=== PATIENT | male | born 1965 | race Caucasian/White ===

== ENCOUNTER → 2018-09-01 | Outpatient (CLI) | payer BC ==
--- NOTE | 2018-09-02 10:14 | EST ---
EXERCISE STRESS AGE: 53 SEX: M HT: 64" WT: 120 PROTOCOL: Alphonse Stress Test STAGE: 3 DURATION OF EXERCISE: 8:00 HEART RATE REST: 69 BLOOD PRESSURE REST: 121/73 MAXIMUM HEART RATE ACHIEVED: 147 MAXIMUM BLOOD PRESSURE: 169/44 85% MPHR: 143 100% MPHR: 168 METS: 9.7 INDICATIONS: Chest pain. CLINICAL INFORMATION: Regular exercise test was performed. Patient was exercised for a total period of 8 minutes peak heart rate of 147 was achieved. Maximum blood pressure of 169/44 mmHg was noted. Resting EKG shows normal sinus rhythm with normal NE interval and QRS duration and normal ST-T waves. During exercise, J-point depression with upsloping ST segments were noted. Patient did not complain of any chest pain during the test. FINAL IMPRESSION: 1. This exercise test shows equivocal upsloping ST-segment changes which are not definitely diagnostic of ischemia. 2. Patient's exercise tolerance is average. 3. Patient did not complain of any anginal pain during the test. MMODL / IJN: [id number] /
== END | disposition home or self-care (01) ==
LOC: RADNMMAIN 08:55
PROVIDERS: ATTEND Family Medicine
DX: R07.9 Chest pain, unspecified (principal); I10 Essential (primary) hypertension; E78.5 Hyperlipidemia, unspecified; E66.9 Obesity, unspecified; Z68.39 Body mass index [BMI] 39.0-39.9, adult
CPT/HCPCS: 93017

== ENCOUNTER 2019-02-11 09:51 | Observation (INO) | payer BC ==
[2019-02-11] MEDS ORDERED: MECLIZINE 12.5 MG TAB PO STA (10:11)
[2019-02-11] MEDS ORDERED: ONDANSETRON 4 MG/2 ML VIAL IVP STA (10:11)
[2019-02-11] MEDS ORDERED: SODIUM CHLORIDE 0.9% 1,000 ML IV STA ×2 (10:11)
--- NOTE | 2019-02-11 10:19 | ED ---
Dizziness HPI - General Chief Complaint: Dizziness Stated Complaint: Dizziness/sweating/numbness Time Seen by Provider: 02/11/19 10:03 Source: patient, family, RN notes reviewed Mode of arrival: wheelchair Limitations: no limitations - History of Present Illness Initial Comments: This is a 54-year-old male in the process of being worked up by cardiology in the stridorous and a negative workup but has not had a cardiac cath who states she had the sudden onset this morning of severe dizziness lightheadedness with nausea sweats dizziness difficulty walking. He also had some vague pain going down his left arm. He denies any fevers chills denies any cough or phlegm production denies any blurry vision headaches no focal deficits. No new medications or drugs or alcohol. No other modifying factors at this time MD Complaint: dizziness, lightheadedness, difficulty walking, other - Related Data Home Medications Medication Instructions Recorded Confirmed Atorvastatin [Lipitor] 40 mg PO HS 07/22/16 02/11/19 Lisinopril [Zestril] 15 mg PO DAILY 02/11/19 02/11/19 Allergies Allergy/AdvReac Type Severity Reaction Status Date / Time No Known Allergies Allergy Verified 02/11/19 10:28 Review of Systems ROS Statement: Those systems with pertinent positive or pertinent negative responses have been documented in the HPI. ROS Other: All systems not noted in ROS Statement are negative. Past Medical History Past Medical History: Hyperlipidemia, Hypertension History of Any Multi-Drug Resistant Organisms: None Reported Additional Past Surgical History / Comment(s): MINOR: DENTAL WORK/VASECTOMY Past Anesthesia/Blood Transfusion Reactions: Motion Sickness Additional Past Anesthesia/Blood Transfusion Reaction / Comment(s): HAS NEVER HAD GENERAL ANESTHESIA. Smoking Status: Never smoker Past Alcohol Use History: None Reported Past Drug Use History: None Reported General Exam - General Exam Comments Initial Comments: This is a well-developed well-nourished awake alert oriented times 3 male who was actively retching at this time. The patient also was noted be hyperventilating Limitations: no limitations General appearance: alert, anxious Head exam: Present: atraumatic, normocephalic, normal inspection Eye exam: Present: normal appearance, PERRL, EOMI. Absent: scleral icterus, conjunctival injection, periorbital swelling ENT exam: Present: normal exam, mucous membranes moist Neck exam: Present: normal inspection, full ROM, other (No stridor JVD or bruits). Absent: tenderness, meningismus, lymphadenopathy Respiratory exam: Present: normal lung sounds bilaterally. Absent: respiratory distress, wheezes, rales, rhonchi, stridor Cardiovascular Exam: Present: regular rate, normal rhythm, normal heart sounds. Absent: systolic murmur, diastolic murmur, rubs, gallop, clicks GI/Abdominal exam: Present: soft, normal bowel sounds. Absent: distended, tenderness, guarding, rebound, rigid, bruit, pulsatile mass Extremities exam: Present: normal inspection, full ROM, normal capillary refill. Absent: tenderness, pedal edema, joint swelling, calf tenderness Back exam: Present: normal inspection Neurological exam: Present: alert, oriented X3, CN II-XII intact Psychiatric exam: Present: normal affect, normal mood Skin exam: Present: warm, intact, diaphoretic, pallor. Absent: rash Course Vital Signs 02/11/19 02/11/19 02/11/19 09:54 10:03 10:30 Temperature 98.4 F Pulse Rate 87 87 Respiratory 18 24 17 Rate Blood Pressure 147/86 152/90 O2 Sat by Pulse 100 99 98 Oximetry 02/11/19 02/11/19 02/11/19 11:00 11:31 12:00 Temperature Pulse Rate 81 83 79 Respiratory 28 H 23 24 Rate Blood Pressure 135/84 134/90 138/90 O2 Sat by Pulse 95 97 Oximetry 02/11/19 02/11/19 02/11/19 12:30 13:00 13:30 Temperature Pulse Rate 73 75 87 Respiratory Rate Blood Pressure 145/86 132/76 143/80 O2 Sat by Pulse 96 97 98 Oximetry - Reevaluation(s) Reevaluation #1: 02/11/19 11:36 Patient was reevaluated several occasions he still family have refractory dizziness with leaning his head back also nausea with dry heaves. Zofran initially did not help the patient was ordered Phenergan. Reevaluation #2: 02/11/19 12:55 Patient's finding started feel better with less dizziness. He is able move his head now without dizziness. Prior to any further assistance he would like to give her the low more time before we make a decision the next step. EKG Findings - EKG Results: EKG: interpreted by MARY, sinus rhythm (Normal sinus rhythm a 91 appear interval 158 QRS duration 14 QT since QTC 374/[address]-T wave changes) Medical Decision Making - Medical Decision Making Patient originally was getting somewhat improved after the medication was rendered. He still markedly dizzy however with any type of movement I did attempt to do Martín maneuvers the patient did not tolerate this patient will be admitted for evaluation - Lab Data Result diagrams: 02/11/19 10:17 02/11/19 12:15 Lab Results 02/11/19 02/11/19 02/11/19 Range/Units 10:17 10:20 12:15 WBC 5.6 (3.8-10.6) k/uL RBC 5.19 (4.30-5.90) m/uL Hgb 15.2 (13.0-17.5) gm/dL Hct 45.0 (39.0-53.0) % MCV 86.6 (80.0-100.0) fL MCH 29.3 (25.0-35.0) pg MCHC 33.8 (31.0-37.0) g/dL RDW 12.7 (11.5-15.5) % Plt Count 203 (150-450) k/uL Neutrophils % 61 % Lymphocytes % 31 % Monocytes % 4 % Eosinophils % 2 % Basophils % 0 % Neutrophils # 3.5 (1.3-7.7) k/uL Lymphocytes # 1.7 (1.0-4.8) k/uL Monocytes # 0.2 (0-1.0) k/uL Eosinophils # 0.1 (0-0.7) k/uL Basophils # 0.0 (0-0.2) k/uL Sodium 142 (137-145) mmol/L Potassium 3.8 (3.5-5.1) mmol/L Chloride 112 H (98-107) mmol/L Carbon Dioxide 18 L (22-30) mmol/L Anion Gap 12 mmol/L BUN 15 (9-20) mg/dL Creatinine 0.92 (0.66-1.25) mg/dL Est GFR (CKD-EPI)AfAm >90 (>60 ml/min/1.73 sqM) Est GFR (CKD-EPI)NonAf >90 (>60 ml/min/1.73 sqM) Glucose 170 H (74-99) mg/dL Calcium 9.4 (8.4-10.2) mg/dL Magnesium 1.8 (1.6-2.3) mg/dL Total Bilirubin 0.6 (0.2-1.3) mg/dL AST 23 (17-59) U/L ALT 29 (21-72) U/L Alkaline Phosphatase 77 (38-126) U/L Creatine Kinase 86 (55-170) U/L Troponin I <0.012 (0.000-0.034) ng/mL Total Protein 7.5 (6.3-8.2) g/dL Albumin 4.8 (3.5-5.0) g/dL - Radiology Data Radiology results: report reviewed (Imaging was reviewed no acute findings.), image reviewed Disposition Clinical Impression: Benign paroxysmal vertigo, unspecified ear, Dizziness of unknown cause Disposition: ADMITTED IP TO THIS [facility] Condition: Fair Referrals: Rich Magaña DO [Primary Care Provider] - 1-2 days
[2019-02-11 10:53] LABS: Basophils % (A) 0 %; Eosinophils # (A) 0.1 k/uL (0-0.7); Eosinophils % (A) 2 %; HGB 15.2 gm/dL (13.0-17.5); Lymphocytes # (A) 1.7 k/uL (1.0-4.8); Lymphocytes % (A) 31 %; MCH 29.3 pg (25.0-35.0); MCHC 33.8 g/dL (31.0-37.0); MCV 86.6 fL (80.0-100.0); Mean Platelet Volume 7.7; Monocytes # (A) 0.2 k/uL (0-1.0); Monocytes % (A) 4 %; Neutrophils # (A) 3.5 k/uL (1.3-7.7); Neutrophils % (A) 61 %; Platelet Count 203 k/uL (150-450); RBC 5.19 m/uL (4.30-5.90); RDW 12.7 % (11.5-15.5); WBC 5.6 k/uL (3.8-10.6)
[2019-02-11] MEDS ORDERED: PROMETHAZINE INJ 25 MG in SODIUM CHLORIDE 0.9% 50 ML IVPB STA (10:55)
--- NOTE | 2019-02-11 12:03 | XR ---
EXAMINATION TYPE: XR chest 2V DATE OF EXAM: 02/11/2019 HISTORY: cough. REFERENCE: Previous study dated 10/23/2010. FINDINGS: Size upper limits of normal. There is mild vascular congestion without definite interstitial change. Pleural spaces are clear. IMPRESSION: MILD CARDIOMEGALY WITH MILD VASCULAR CONGESTION.
[2019-02-11 12:26] LABS: ALT 29 U/L (21-72); AST 23 U/L (17-59); African American GFR (CKD) >90 (>60 ml/min/1.73 sqM); Albumin 4.8 g/dL (3.5-5.0); Alkaline Phosphatase 77 U/L (38-126); Anion Gap 12 mmol/L; Blood Urea Nitrogen 15 mg/dL (9-20); Calcium 9.4 mg/dL (8.4-10.2); Carbon Dioxide 18 mmol/L (22-30); Chloride 112 mmol/L (98-107); Creatine Kinase 86 U/L (55-170); Glucose 170 mg/dL (74-99); Magnesium 1.8 mg/dL (1.6-2.3); Potassium 3.8 mmol/L (3.5-5.1); Sodium 142 mmol/L (137-145); Total Bilirubin 0.6 mg/dL (0.2-1.3); Total Protein 7.5 g/dL (6.3-8.2)
--- NOTE | 2019-02-11 12:44 | CT ---
EXAMINATION TYPE: CT brain wo con DATE OF EXAM: 02/11/2019 COMPARISON: Previous study dated 10/25/2010 HISTORY: Dizziness and nausea CT DLP: 1046.4 mGycm Automated exposure control for dose reduction was used. FINDINGS: Central structures are midline. There is no evidence of hydrocephalus. No acute focal lesion, mass ef fect or midline shift is seen. I do not see evidence of intracranial blood. Visualized portions of the paranasal sinuses and mastoids are clear. IMPRESSION: NORMAL CT SCAN OF THE BRAIN.
[2019-02-11] MEDS ORDERED: ACETAMINOPHEN TAB 325 MG TAB PO PRN (13:51)
[2019-02-11] MEDS ORDERED: NALOXONE 0.4 MG/ML 1 ML VIAL IV PRN (13:51)
[2019-02-11] MEDS ORDERED: FUROSEMIDE 10 MG/ML 2 ML VIAL IV ONE (13:53)
[2019-02-11] MEDS ORDERED: DIAZEPAM 2 MG TAB PO STA (13:53)
[2019-02-11] MEDS: SODIUM CHLORIDE 0.9% 1,000 ML IV SCH (14:54)
[2019-02-11] MEDS: ONDANSETRON 4 MG/2 ML VIAL IVP SCH ×2 (18:26→22:41)
[2019-02-11] MEDS: LISINOPRIL 5 MG TAB PO SCH (20:24)
[2019-02-11] MEDS ORDERED: ATORVASTATIN 40 MG TAB PO SCH (21:00)
[2019-02-12] MEDS ORDERED: MECLIZINE 12.5 MG TAB PO PRN (00:43)
--- NOTE | 2019-02-12 00:47 | P.HPIM ---
History of Present Illness H&P Date: 02/11/19 Chief Complaint: Dizziness and lightheadedness Patient is a 53-year-old male with a known history of hypertension, hyperlipidemia and is currently being worked up for dizziness by cardiology came to the hospital with complaints of dizziness and vertigo. Patient says that she got up from bed this morning and felt room was spinning around and was very nauseous. Patient was about to fall while walking and also complaining of sweating at the time. Due to worsening symptoms patient presents to ER. Patient also felt left arm funny. No complaints of chest pain. No cough or sputum production. No dysuria or hematuria. Denied any recent illnesses otherwise. Denied any previous history of vertigo. No recent upper respiratory infection. Patient is being worked up by cardiology for dizziness. Had an Holter monitor for 24 hours. Cardiac workup has been negative so far. Denied any smoking or alcohol abuse. Patient had negative exercise stress test in August 2018 Chest x-ray showed mild cardiomegaly and mild vascular congestion. CT head is normal. EKG showed normal sinus rhythm Troponin 1 negative Review of Systems Constitutional: Patient denies any fever or chills . No generalized weakness or weight loss. Abdomen: Patient denied nausea vomiting and diarrhea and abdominal pain. Cardiovascular: Patient denies any chest pain or short of breath no palpitations. Respiratory: patient denied any cough is from production. No shortness of breath Neurologic: Patient denied any numbness or tingling headache. Dizziness and lightheadedness and vertigo Musculoskeletal: Patient denies any complaints of joint swelling or deformity. Skin: Negative Psychiatric: Negative Endocrine: No heat or cold intolerance. No recent weight gain. Genitourinary: No dysuria or hematuria. All other 14 point ROS negative except the above Past Medical History Past Medical History: Hyperlipidemia, Hypertension History of Any Multi-Drug Resistant Organisms: None Reported Additional Past Surgical History / Comment(s): MINOR: DENTAL WORK/VASECTOMY Past Anesthesia/Blood Transfusion Reactions: No Reported Reaction, Motion Sickness Additional Past Anesthesia/Blood Transfusion Reaction / Comment(s): HAS NEVER HAD GENERAL ANESTHESIA. Past Psychological History: No Psychological Hx Reported Smoking Status: Never smoker Past Alcohol Use History: None Reported Past Drug Use History: None Reported - Past Family History Mother Family Medical History: Hyperlipidemia Additional Family Medical History / Comment(s): "heart problems" stated by . Father Additional Family Medical History / Comment(s): "heart problems" stated by , Parkinsons Medications and Allergies Home Medications Medication Instructions Recorded Confirmed Type Atorvastatin [Lipitor] 40 mg PO HS 07/22/16 02/11/19 History Lisinopril [Zestril] 15 mg PO DAILY 02/11/19 02/11/19 History Allergies Allergy/AdvReac Type Severity Reaction Status Date / Time No Known Allergies Allergy Verified 02/11/19 10:28 Physical Exam Vitals: Vital Signs Temp Pulse Pulse Pulse Pulse Resp BP 02/11/19 19:18 98.0 F 96 15 02/11/19 15:15 98.2 F 80 83 88 18 02/11/19 14:00 133/77 02/11/19 13:30 87 143/80 02/11/19 13:00 75 132/76 02/11/19 12:30 73 145/86 02/11/19 12:00 79 24 138/90 02/11/19 11:31 83 23 134/90 02/11/19 11:00 81 28 H 135/84 02/11/19 10:30 87 17 152/90 02/11/19 10:03 24 02/11/19 09:54 98.4 F 87 18 147/86 BP BP BP Pulse Ox 02/11/19 19:18 126/73 98 02/11/19 15:15 114/73 124/82 124/77 98 02/11/19 14:00 02/11/19 13:30 98 02/11/19 13:00 97 02/11/19 12:30 96 02/11/19 12:00 97 02/11/19 11:31 95 02/11/19 11:00 02/11/19 10:30 98 02/11/19 10:03 99 02/11/19 09:54 100 Intake and Output 02/11/19 02/11/19 02/11/19 06:59 14:59 22:59 Other: Voiding Method Toilet Weight 99.79 kg PHYSICAL EXAMINATION: Patient is lying in the bed comfortably, no acute distress, awake alert and oriented.. HEENT: Normocephalic. Neck is supple. Pupils reactive. Nostrils clear. Oral cavity is moist. Ears reveal no drainage. Neck reveals no JVD, carotid bruits, or thyromegaly. CHEST EXAMINATION: Trachea is central. Symmetrical expansion. Lung christopher clear to auscultation and percussion. CARDIAC: Normal S1, S2 with no gallops. No murmurs ABDOMEN: Soft. Bowel sounds normal. No organomegaly. No abdominal bruits. Extremities: reveal no edema. No clubbing or cyanosis Neurologically awake, alert, oriented x3 with well-coordinated movements. No focal deficits noted Skin: No rash or skin lesions. Psychiatric: Coperative. Nonsuicidal Musculoskeletal: No joint swelling or deformity. Normal range of motion. Results CBC & Chem 7: 02/11/19 10:17 02/11/19 12:15 Labs: Abnormal Lab Results - Last 24 Hours (Table) 02/11/19 Range/Units 12:15 Chloride 112 H (98-107) mmol/L Carbon Dioxide 18 L (22-30) mmol/L Glucose 170 H (74-99) mg/dL Thrombosis Risk Factor Assmnt - DVT/VTE Prophylaxis DVT/VTE Prophylaxis: Pharmacologic Prophylaxis ordered - Choose All That Apply Any of the Below Risk Factors Present?: Yes Each Factor Represents 1 point: Age 41-60 years, Obesity (BMI >25) Thrombosis Risk Factor Assessment Total Risk Factor Score: 2 Thrombosis Risk Factor Assessment Level: Low Risk Assessment and Plan Assessment: Dizziness likely due to benign positional vertigo Hypertension Hyperlipidemia DVT prophylaxis Morbid obesity BMI 36.6 Plan: Patient will be continued on IV hydration, meclizine when necessary. Continue with home blood pressure medications and monitor closely. ENT was consulted for further evaluation. Time with Patient: Greater than 30
[2019-02-12] MEDS: SODIUM CHLORIDE 0.9% 1,000 ML IV SCH (05:20)
[2019-02-12 08:02] VITALS: RESP 16
[2019-02-12] MEDS ORDERED: LISINOPRIL 5 MG TAB PO SCH (09:00)
[2019-02-12] MEDS: ONDANSETRON 4 MG/2 ML VIAL IVP SCH ×2 (09:26→17:45)
[2019-02-12] MEDS: LISINOPRIL 5 MG TAB PO SCH (09:33)
[2019-02-12 16:16] VITALS: BP 119/69; PULSE 80; TEMP 98.6
== END 2019-02-12 18:15 | disposition home or self-care (01) ==
LOC: EC 09:51 → 1SOBS 13:53
PROVIDERS: ADMIT Internal Medicine; ATTEND Internal Medicine
DX: R42 Dizziness and giddiness (principal); R20.0 Anesthesia of skin; R11.0 Nausea; R61 Generalized hyperhidrosis; M79.602 Pain in left arm; R26.2 Difficulty in walking, not elsewhere classified; I10 Essential (primary) hypertension; E78.5 Hyperlipidemia, unspecified; Z79.899 Other long term (current) drug therapy; Z82.49 Family history of ischemic heart disease and other diseases of the circulatory system; E66.01 Morbid (severe) obesity due to excess calories; Z68.36 Body mass index [BMI] 36.0-36.9, adult
CPT/HCPCS: 96376; 96361; 96374; 96375; 99285; 36415; 93005; 80053; 82550; 83735; 84484; 85025; 71046; 70450; G0378 ×2; J1940; J2550; J2405

== ENCOUNTER → 2019-06-15 | Outpatient (CLI) | payer BC ==
--- NOTE | 2019-06-26 11:35 | XR ---
KUB HISTORY: Hematuria, low back pain, right flank pain Frontal KUB submitted on this day for interpretation. No comparisons. Bone mineralization is maintained. No pathologic calcification. No evident obstruction or pneumoperit oneum. There is a calcification superimposed over the lower pole the left kidney measuring approximat jaime 4 mm. Indeterminate punctate calcification present in the left hemipelvis. IMPRESSION: Possible nephrolithiasis.
== END | disposition home or self-care (01) ==
LOC: RADXRYALE 10:46
PROVIDERS: ATTEND Physician Assistant
DX: M54.5 Low back pain (principal); R31.9 Hematuria, unspecified
CPT/HCPCS: 74018

== ENCOUNTER → 2022-08-07 | Outpatient (CLI) | payer BC ==
--- NOTE | 2022-08-07 10:12 | XR ---
EXAMINATION TYPE: XR Hip Complete LT DATE OF EXAM: 08/07/2022 COMPARISON: NONE HISTORY: Pain TECHNIQUE: 2 views submitted FINDINGS: There is no evidence of erosive change or acute fracture. Diffuse osteopenia. Surgical clips in the p erineum. Mild hypertrophic change of the acetabulum. IMPRESSION: 1. Mild hypertrophic change of the acetabulum associated with femoral acetabular. 2. Mild diffuse osteopenia.
--- NOTE | 2022-08-07 10:13 | XR ---
EXAM TYPE: LUMBAR SPINE X RAY SERIES COMPARISON: NONE HISTORY: Pain TECHNIQUE: 4 views are submitted. FINDINGS: Alignment is anatomic. The pedicles are intact. The transverse processes are intact. There is diff use osteopenia with grade 1 anterolisthesis L4 and L5. Facet arthropathy L4-5 and L5-S1. IMPRESSION: 1. Very minimal grade 1 anterolisthesis L4 and L5 with facet arthropathy L4-5 and L5-S1. Consider fol low-up MRI. 2. Diffuse osteopenia
== END | disposition home or self-care (01) ==
LOC: RADXRYALE 09:39
PROVIDERS: ATTEND Family Medicine
DX: M47.817 Spondylosis without myelopathy or radiculopathy, lumbosacral region (principal); M43.16 Spondylolisthesis, lumbar region; M89.352 Hypertrophy of bone, left femur; M46.1 Sacroiliitis, not elsewhere classified; M85.852 Other specified disorders of bone density and structure, left thigh
CPT/HCPCS: 72110; 73502

== ENCOUNTER → 2022-08-28 | Outpatient (CLI) | payer BC ==
--- NOTE | 2022-08-29 08:27 | MR ---
EXAMINATION TYPE: MR lumbar spine wo con DATE OF EXAM: 08/28/2022 8:40 AM COMPARISON: Spine radiographs 08/07/2022.. CLINICAL INDICATION:Male, 57 years old with history of M54.16 RADICULOPATHY, LUMBAR REGION; TECHNIQUE: Multi planar, multi sequence imaging was performed utilizing: T1-weighted, T2-weighted, a nd turbo inversion recovery imaging of the lumbar spine. IV Contrast: None. FINDINGS: Alignment: The lumbar vertebral bodies have preserved heights and alignment. Cord: The conus medullaris and the distal spinal cord appear unremarkable with regards to their signa l intensity and morphology. Bones/Discs: Patchy areas of high T1/high T2 signal consistent with probable focal fat or vertebral b shaheen hemangiomas. Intervertebral disc signal is maintained. L1-L2: No evidence of significant spinal canal stenosis or neural foraminal stenosis. L2-L3: No evidence of significant spinal canal stenosis or neural foraminal stenosis. L3-L4: No evidence of significant spinal canal stenosis. Facet joint arthropathy mild bilateral neura l foraminal stenosis. L4-L5: No evidence of significant spinal canal stenosis. Facet joint arthropathy mild bilateral neura l foraminal stenosis. L5-S1: Disc bulge and facet joint arthropathy without spinal canal stenosis and mild bilateral neural foraminal stenosis. IMPRESSION: 1. No evidence for significant spinal canal or neural foraminal stenosis. 2. Mild degeneration changes throughout the spine with multilevel mild neural foraminal stenosis. 3. Patchy bone marrow signal could represent red marrow reconversion.
== END | disposition home or self-care (01) ==
LOC: RADMRIMAIN 08:03
PROVIDERS: ATTEND Physician Assistant
DX: M47.26 Other spondylosis with radiculopathy, lumbar region (principal); M48.061 Spinal stenosis, lumbar region without neurogenic claudication; M99.73 Connective tissue and disc stenosis of intervertebral foramina of lumbar region
CPT/HCPCS: 72148